=== PATIENT | male | born 1990 | race Caucasian/White ===

== ENCOUNTER 2017-07-31 05:27 | Day surgery (SDC) | payer OTHER ==
[~2017-07-31] VITALS: Ht 180.3 cm; Wt 88.0 kg
--- NOTE | ~2017-07-31 | O ---
[facility] [place] [address] OPERATIVE REPORT Name: HUDSONLUARA Room #: DEP [facility]..#: [id number] Admission: 07/31/17 Attend Phys: Dania Madrigal, Discharge: 07/31/17 Date of : 89 Report #: [id number] THIS REPORT FOR: //name// CC: [facility] physician/PCP Dania Madrigal DATE OF SERVICE: 07/31/2017 PREOPERATIVE DIAGNOSES: 1. Left long finger metacarpal fracture, unstable and displaced. 2. Left ring finger metacarpal fracture, unstable and displaced. POSTOPERATIVE DIAGNOSES: 1. Left long finger metacarpal fracture, unstable and displaced. 2. Left ring finger metacarpal fracture, unstable and displaced. PROCEDURE PERFORMED: 1. Open reduction and internal fixation of left long finger metacarpal fracture. 2. Open reduction and internal fixation of left ring finger metacarpal fracture. SURGEON: Dania Madrigal MD ANESTHESIA: General mask anesthesia. ESTIMATED BLOOD LOSS: Minimal. TOURNIQUET TIME: 73 minutes. COMPLICATIONS: None. CONDITION: Stable. DISPOSITION: Recovery room. INDICATIONS: The patient is a 27-year-old male with the above-mentioned diagnoses. He elects for operative treatment. The risks, benefits, alternatives and complications were discussed including but were not limited to infection, damage to vessels or nerves, incomplete relief of the symptoms, nonunion, malunion, hardware failure, hardware irritation and stiffness. Informed consent was obtained. The correct extremity was identified and labeled by myself after verbal confirmation of the patient as well as visual confirmation and signed informed consent. DESCRIPTION OF PROCEDURE: The patient was brought back to the operating room, [address] [address] OPERATIVE REPORT Name: LAURA TREVIÑO Room #: DEP [facility] M.R.#: [id number] Admission: 07/31/17 Attend Phys: Dania Madrigal, Discharge: 07/31/17 Date of : 89 Report #: [id number] placed on the operating table in the supine position. He received preoperative antibiotics. Tourniquet was placed over padding on the patient's left upper extremity. Left upper extremity was sterilely prepped and draped in the usual fashion. Final timeout was taken to verify correct patient, operative procedure and operative site, all concurred. The arm was elevated, exsanguinated and the tourniquet inflated. Next, two longitudinal incisions were made over each of the left long and ring finger. First, attention was placed to the long. Dissection was carried down through subcutaneous tissue with tenotomy scissors. The periosteum was easily identified and incised. The fracture site was easily identified, cleaned of clot and debris and a provisional reduction was obtained with digital manipulation and an appropriate reduction was visualized under direct visualization as well as fluoroscopy. Next, attention was placed to the ring. Dissection was carried down through subcutaneous tissue with tenotomy scissors. Bleeders were coagulated. The periosteum was elevated off the bone and the fracture site was cleaned of clot and debris. The fracture was provisionally reduced. A 2 mm T-type plate was applied to the bone. It was affixed to the bone proximally using fluoroscopic guidance to assist with drilling and measuring. Next, it was affixed to the bone distally with nice compression at the fracture site. All the screws were drilled, measured and the appropriate size screws were placed. This was felt to be very stable. Next, attention was placed to the long. The fracture on the long was in the sagittal plane and so a initial lag screw was placed distally; however, this lost fixation and so a second lag screw was placed more in the middle of the fracture. This did not leave room for another lag screw and this is a 2 mm lag screw, so a straight plate was applied to the bone and using fluoroscopic guidance, the plate had 4 cortices proximally and 6 cortices distally with a lag screw. It was a 2 mm plate. The fracture was felt to be excellently reduced. Neither finger had rotational or angular deformity and the screws were felt to be at the appropriate length. Next, the wounds were thoroughly irrigated. The periosteum was closed with a running 4-0 Vicryl suture on each metacarpal. The skin was closed with 4-0 nylon suture. The subcutaneous tissue was infiltrated. Approximately 10 mL of 0.25% Marcaine was placed in a bulky dressing and a volar and dorsal slab splint. All fingers were pink with brisk capillary refill at the conclusion of the case. After deflation of the tourniquet, all sponge and needle counts were correct. The patient was transferred to the postoperative recovery room in stable condition. By: [id number] Dania Madrigal MD /singh
[~2017-07-31 05:27] MED LIST: BENADRYL25 MG PO; HYDROCODONE-AP1 EAC6 PO; IBUPROFEN 600600 M1 PO
[2017-07-31 14:24] VITALS: BP 119/64
[2017-07-31 17:23] VITALS: BP 119/64
== END 2017-07-31 18:00 | disposition home or self-care (01) ==
LOC: TBA 05:27 → OR 05:27 → TBA 05:28 → OR 13:23
DX: S62.303A Unspecified fracture of third metacarpal bone, left hand, initial encounter for closed fracture (principal); S62.305A Unspecified fracture of fourth metacarpal bone, left hand, initial encounter for closed fracture; X58.XXXA Exposure to other specified factors, initial encounter; Y93.89 Activity, other specified; Y92.89 Other specified places as the place of occurrence of the external cause; Y99.8 Other external cause status
CPT/HCPCS: 50010; 50101; 50386; 51736; 56526; 57006; 57091; 62110; 62900; 70005